=== PATIENT | male | born 1990 | race Hispanic/Latino ===

== ENCOUNTER 2017-07-29 05:24 | Emergency (ER) | payer SELFPAY ==
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
[2017-07-29 08:30] VITALS: BP 148/88
--- NOTE | 2017-07-29 11:29 | XRay Report ---
FINAL REPORT EXAM: XR FOOT 3+V LT HISTORY: Stepped in hole and foot popped LEFT FOOT SWELLING AND PAIN TECHNIQUE: Three views of the left foot were submitted. FINDINGS: There is soft tissue swelling overlying the lateral malleolus. There is no evidence of acute fracture or dislocation. IMPRESSION: Soft tissue swelling overlying the lateral malleolus. No acute fracture.
--- NOTE | 2017-07-29 11:29 | XRay Report ---
FINAL REPORT EXAM: XR ANKLE 3+V LT HISTORY: Stepped in a hole. Foot popped. LEFT ANKLE SWELLING AND PAIN TECHNIQUE: Three views of the left ankle were obtained. FINDINGS: There is soft tissue swelling overlying the lateral malleolus. There is no evidence of fracture or dislocation. The ankle mortise is well maintained. There an ossicle abutting the inferior margin of the lateral malleolus. IMPRESSION: Soft tissue swelling overlying the lateral malleolus. No acute fracture.
== END 2017-07-29 08:28 | disposition home or self-care (01) ==
LOC: ED 05:24
DX: S93.402A Sprain of unspecified ligament of left ankle, initial encounter (principal); S93.602A Unspecified sprain of left foot, initial encounter; F17.200 Nicotine dependence, unspecified, uncomplicated; W18.30XA Fall on same level, unspecified, initial encounter; Y93.89 Activity, other specified; Y92.89 Other specified places as the place of occurrence of the external cause; Y99.8 Other external cause status

== ENCOUNTER 2021-05-04 20:18 | Emergency (ER) | payer BC ==
[2021-05-04 21:51] VITALS: BP 144/75
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
== END 2021-05-05 | disposition home or self-care (01) ==
LOC: ED 20:18
DX: S61.210A Laceration without foreign body of right index finger without damage to nail, initial encounter (principal); Z98.890 Other specified postprocedural states; F17.200 Nicotine dependence, unspecified, uncomplicated; Z79.899 Other long term (current) drug therapy; W54.0XXA Bitten by dog, initial encounter; Y93.89 Activity, other specified; Y92.89 Other specified places as the place of occurrence of the external cause; Y99.8 Other external cause status
CPT/HCPCS: 99282